=== PATIENT | male | born 1965 | race Caucasian/White ===

== ENCOUNTER 2016-06-19 13:18 | Day surgery (SDC) | payer BC ==
--- NOTE | ~2016-06-19 | OP ---
Record Of Operation [facility] [address] [place]. [address] NAME: GHAZAL LITTLE : 63 STATUS : [place] [facility] PAT#: [id number] AGE: 50 ADM/REG DATE : 06/19/16 MR#: [id number] REPORT SERV DATE: 06/19/16 DICTATED BY: Jamil NASH DATE: 06/19/16 REPORT STATUS : Draft TRANSCRIBED BY: MODL DATE: 06/19/16 DATE OF PROCEDURE: 06/19/2016 PREOPERATIVE DIAGNOSIS: Left ureteral stone with intractable pain. POSTOPERATIVE DIAGNOSIS: Left distal ureteral stone. PROCEDURE: Cystoscopy, left retrograde pyelography, ureteroscopy with basket stone extraction, double-J stent placement. SURGEON: Jamil Nash M.D. ANESTHESIA: General endotracheal. COMPLICATIONS: None. DRAINS: 7-Nigerien x 22 cm Contour double-J stent. BRIEF HISTORY: Mr. Little is a 50-year-old white male, seen by me for the first time earlier this week with a 3-4 mm left proximal ureteral stone. He was doing well on pain medicine. We added medical expulsive therapy and encouraged him to try to pass the stone. He called today having intractable pain overnight and we offered stone extraction. I felt that further imaging was probably unnecessary. We discussed risks of bleeding, infection, anesthesia, injury to adjacent organs, need for postoperative standing and its attendant misery. There were no unanswered questions. DESCRIPTION OF PROCEDURE: Under excellent general anesthesia, the patient was prepped and draped in standard lithotomy position. Cystoscopy was performed with a 30-degree lens, revealed a normal anterior urethra. The posterior urethra showed some trilobar BPH. Inspection of the bladder revealed some debris, but no tumor, stones, or foreign bodies. The left intramural tunnel appeared swollen. I performed a left retrograde pyelogram with an 8-Nigerien cone-tipped catheter. It showed ureterectasis from the UVJ proximally and it appeared that the filling defect was at the UVJ. I inserted an angled glidewire through a 5 Nigerien open-ended catheter and a lot of old bloody looking debris drained from the ureter. I inserted a short rigid ureteroscope and encountered a mobile stone in the distal ureter. I used a nitinol basket and even though I had to mari it up to the ureter somewhat. I was able to finally grasp the stone and remove it intact. It was sent for analysis. The ureter was inspected. There was some expected ureteral change distally and I opted to place a stent. I dilutely opacified the collecting system, retrofitted the wire into the cystoscope and placed a 7-Nigerien x 26 cm Contour double-J stent. It coiled nicely in the renal pelvis and bladder, and I plan to discharge Mr. Little as an outpatient with the following instructions. DISCHARGE INSTRUCTIONS: 1. Home today. 2. Percocet 5/325 one to two p.o. q.4 hours p.r.n. pain, #20. Record Of Operation [address] [place]. [address] NAME: GHAZAL LITTLE : 63 STATUS : [place] [facility] PAT#: [id number] AGE: 50 ADM/REG DATE : 06/19/16 MR#: [id number] REPORT SERV DATE: 06/19/16 DICTATED BY: Jamil NASH DATE: 06/19/16 REPORT STATUS : Draft TRANSCRIBED BY: SHERRIE DATE: 06/19/16 3. Phenergan 25 mg p.o. q.6 hours p.r.n. nausea and vomiting. 4. Pyridium 200 mg p.o. t.i.d. p.r.n. bladder pain, #15 with three refills. 5. He can have his stent removed next week as early as Wednesday. We could do it in the office under local or it can be arranged to be removed in the operating room some other day. I will leave this decision up to he and his . They should expect blood in the urine and stent discomfort as discussed. ALEC/SHERRIE Jamil Nash M.D. / [id number] CC: Odalis Charles M.D.
[~2016-06-19 13:18] MED LIST: *DENIES
[2016-06-24 17:13] LABS: STONE COMPOSITION TWO DNR (())
== END 2016-06-19 19:19 | disposition home or self-care (01) ==
LOC: SDC 13:18
PROC: 0T778DZ Dilation of Left Ureter with Intraluminal Device, Via Natural or Artificial Opening Endoscopic (ICD-10-PCS; 2016-06-19)
PROC: BT1FYZZ Fluoroscopy of Left Kidney, Ureter and Bladder using Other Contrast (ICD-10-PCS; 2016-06-19)
PROC: 0TC78ZZ Extirpation of Matter from Left Ureter, Via Natural or Artificial Opening Endoscopic (ICD-10-PCS; principal; 2016-06-19 14:45)
DX: N20.1 Calculus of ureter (principal); E78.00 Pure hypercholesterolemia, unspecified; E03.9 Hypothyroidism, unspecified; E78.5 Hyperlipidemia, unspecified; Z79.1 Long term (current) use of non-steroidal anti-inflammatories (NSAID); Z79.899 Other long term (current) drug therapy
CPT/HCPCS: 74420; 82365; 93005; C1758; C1769; C2617; J2250; J2405; J2710; J3010; Q9967